=== PATIENT | female | born 1995 | race African-American/Black ===

== ENCOUNTER 2016-08-05 19:33 | Emergency (ER) | payer BC ==
[~2016-08-05] VITALS: Ht 172.7 cm; Wt 95.0 kg
[~2016-08-05 19:33] MED LIST: IBUP800 PO
[2016-08-05 19:35] VITALS: BP 119/69; PULSE 77; TEMP 98.2; O2SAT 98
--- NOTE | 2016-08-05 21:14 | PD ---
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 The patient denies fever, chills, anorexia, nausea, vomiting, changes in bowel habits, dysuria, back pain , vaginal discharge. Patient states LMP approximately 6 weeks ago. She endorses unprotected sex and risk of . She states that her male sexual partner tested positive for chlamydia. PFSH Past Medical History ?: Unknown Social History Alcohol Use: No Tobacco Use: No Substance Use: No Allergies-Medications (Allergen,Severity, Reaction): Coded Allergies: Pecan (Verified Allergy, Unknown, 08/05/16) Reported Meds & Prescriptions Reported Meds & Active Scripts Active No Active Prescriptions or Reported Medications Review of Systems Except as stated in HPI: all other systems reviewed are Neg Physical Exam Narrative GENERAL: Well-nourished, well-developed black female in no acute distress. SKIN: Focused skin assessment warm/dry. HEAD: Normocephalic. EYES: No scleral icterus. No injection or drainage. NECK: Supple, trachea midline. No JVD or lymphadenopathy. CARDIOVASCULAR: Regular rate and rhythm without murmurs, gallops, or rubs. RESPIRATORY: Breath sounds clear and equal bilaterally. No accessory muscle use. GASTROINTESTINAL: Abdomen soft, non-tender, nondistended. Active bowel sounds. GENITOURINARY: Normal external genitalia without lesions or erythema. Vaginal vault without blood. Mild to moderate pale white drainage with a fishy odor. Cervical os was closed without drainage. No cervical motion tenderness. Uterus nontender and nonenlarged. Bilateral adnexa nontender without masses. MUSCULOSKELETAL: No cyanosis, or edema. BACK: Nontender without obvious deformity. No CVA tenderness. Data Data Last Documented VS Vital Signs Date Time Temp Pulse Resp B/P Pulse Ox O2 Delivery O2 Flow Rate FiO2 08/05/16 19:35 98.2 77 119/69 98 Room Air Orders Gc And Chlamydia Pcr (08/05/16 21:25) Wet Prep Profile (08/05/16 21:25) Urinalysis - C+S If Indicated (08/05/16 21:25) Ed Urine Pregnancytest Poc (08/05/16 21:25) Azithromycin Powd Pack (Zithromax Powd P (08/05/16 22:30) Lidocaine 1% Inj (50 Ml) (Xylocaine 1% I (08/05/16 22:30) Ceftriaxone Inj (Rocephin Inj) (08/05/16 22:30) Labs Laboratory Tests Test 08/05/16 08/05/16 21:30 21:55 Urine Color YELLOW Urine Turbidity CLEAR Urine pH 7.0 Urine Specific [place] 1.024 Urine Protein NEG mg/dL Urine Glucose (UA) NEG mg/dL Urine Ketones NEG mg/dL Urine Occult Blood NEG Urine Nitrite NEG Urine Bilirubin NEG Urine Urobilinogen LESS THAN 2.0 MG/DL Urine Leukocyte Esterase NEG Urine RBC LESS THAN 1 /hpf Urine Squamous Epithelial 2 /hpf Cells Urine Mucus FEW /lpf Microscopic Urinalysis Comment CULT NOT INDICATED Clue Cells (Wet Prep) NONE SEEN Vaginal Trichomonas (Wet Prep) NONE SEEN Vaginal Yeast (Wet Prep) NONE SEEN Chlamydia trachomatis DNA NOT DETECTED (PCR) Neisseria gonorrhoeae DNA NOT DETECTED (PCR) MDM Medical Decision Making Medical Screen Exam Complete: Yes Emergency Medical Condition: Yes Differential Diagnosis UTI versus pyelonephritis versus chlamydia versus gonorrhea versus vaginal candidiasis versus BV versus PID versus other Narrative Course 21 year old female presents to the ED for evaluation of 3-4 month history of intermittent lower abdominal pain, vaginal odor. The patient denies fever, chills, anorexia, nausea, vomiting, changes in bowel habits, dysuria, back pain , vaginal discharge. Patient states LMP approximately 6 weeks ago. She endorses unprotected sex and risk of . She states that her male sexual partner tested positive for chlamydia. Vitals reviewed. Physical exam reveals a nontoxic appearing black female in no acute distress. Abdominal exam reassuring. No CVA tenderness. Pelvic exam reveals moderate, thin, white discharge with a fishy odor. No culture indicated of the UA. Bedside urine test negative. Wet prep negative. GC and chlamydia pending. Patient was administered IM Rocephin, 1 g azithromycin by mouth. 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 She indicated understanding of instructions and is agreeable to the care plan. She is stable and discharged home. Diagnosis Primary Impression: Exposure to chlamydia Referrals: [facility] Patient Instructions: Chlamydia (ED), General Instructions, Gonorrhea (ED) Additional Instructions: Rest, hydrate. The only safe sex is abstinence. Use barrier methods such as condoms. Follow-up with the Health Department for test of cure and full STD screen before resuming sexual activity. Return to the ED for any urgent or emergent medical condition. Scripts No Active Prescriptions or Reported Meds Disposition: 01 DISCHARGE HOME Condition: Pearl Daugherty Aug 05, 2016 21:14
[2016-08-05 22:00] LABS: BLOOD, URINE NEG (NEG); COMMENT (UR) CULT NOT INDICATED; CULTURE IF INDICATED CULT NOT INDICATED; GLUCOSE,URINE NEG (NEG); KETONE, URINE NEG (NEG); MUCUS URINE FEW /lpf (OCC); NITRITE,URINE NEG (NEG); SQUAMOUS EPITHELIAL CELL URINE 2 /hpf (0-5); URINE COLOR YELLOW (YELLW/STRAW)
[2016-08-05] MEDS ORDERED: LIDOCAINE HCL 1% 50 ML VIAL IM ONE (22:30)
[2016-08-05] MEDS ORDERED: AZITHROMYCIN PWD FOR SUSP 1 GM PACKET PO ONE (22:30)
[2016-08-06 01:46] LABS: CHLAMYDIA PCR NOT DETECTED (NOT DETECT); NEISSERIA PCR NOT DETECTED (NOT DETECT)
== END 2016-08-05 23:22 | disposition home or self-care (01) ==
LOC: NEPE 19:33
DX: Z20.2 Contact with and (suspected) exposure to infections with a predominantly sexual mode of transmission (principal); R10.30 Lower abdominal pain, unspecified; N89.8 Other specified noninflammatory disorders of vagina
CPT/HCPCS: 81001; 84703; 87210; 87491; 87591; 96372; 99283; J0696